=== PATIENT | male | born 1955 | race African-American/Black ===

== ENCOUNTER 2022-08-20 13:31 | Emergency (ER) | payer OTHER ==
[~2022-08-20] VITALS: Ht 190.5 cm; Wt 160.0 kg
[2022-08-20 15:41] VITALS: BP 143/81
[2022-08-20 15:45] LABS: CHLORIDE 104 mEq/L (98-107)
[2022-08-20 15:53] LABS: ETHANOL BLOOD < 10 mg/dL
[2022-08-20 15:55] LABS: BASOPHILS % 0.5 % (0.0-2.0); EOSINOPHILS % 2.3 % (0.0-5.0); HEMOGLOBIN. 13.3 g/dL (14.0-18.0); LYMPHOCYTES % 9.5 % (20.0-50.0); MEAN CORPUSCULAR HEMOGLOBIN 24.4 pg (28.0-32.0); MEAN CORPUSCULAR VOLUME 77.1 fL (80.0-94.0); MEAN PLATELET VOLUME 8.9 fl (7.4-10.4); MONOCYTES % 5.1 % (2.0-8.0); NEUTROPHILS % 82.6 % (40.0-76.0); PLATELET 168 x1000/uL (130-400); RED BLOOD CELL COUNT 5.45 mill/uL (4.7-6.1); RED CELL DISTRIBUTION WIDTH 16.3 % (11.6-14.6)
[2022-08-20] MEDS ORDERED: KEPP500 MT (17:47)
== END 2022-08-20 17:47 | disposition home or self-care (01) ==
LOC: ER 13:31
DX: R56.9 Unspecified convulsions (principal)
CPT/HCPCS: 36415; 80053; 80320; 83735; 85025; 93005; 99285; G0480